=== PATIENT | male | born 1990 | race Caucasian/White ===

== ENCOUNTER 2017-08-14 10:40 | Inpatient (IN) | payer MEDICAID, OTHER ==
[2017-08-14] MEDS ORDERED: KETOROLAC TROMETHAMINE INJ/PF 30 MG/1 ML SDV IV ONE (10:56)
[2017-08-14] MEDS ORDERED: ONDANSETRON 4 MG TAB.RAPDIS SL ONE (10:56)
--- NOTE | 2017-08-14 10:57 | ER Document Report ---
ED Medical Screen (RME) - General Chief Complaint: Abdominal Pain Stated Complaint: ABDOMINAL PAIN Time Seen by Provider: 08/14/17 10:55 Mode of Arrival: Wheelchair Information source: Patient TRAVEL OUTSIDE OF THE [place] IN LAST 30 DAYS: No - HPI Patient complains to provider of: Abdominal pain Notes: 08/14/17 10:56 Patient is a 26-year-old male presenting to the emergency room complaining of epigastric abdominal pain with nausea and vomiting, no history of similar symptoms, no previous abdominal surgeries - Related Data Allergies/Adverse Reactions: No Known Allergies Allergy (Verified 04/21/14 12:16) Past Medical History Psychiatric Medical History: Reports: Hx Anxiety, Hx Bipolar Disorder, Hx Depression Past Surgical History: Reports: Hx Oral Surgery - Immunizations Hx Diphtheria, Pertussis, Tetanus Vaccination: Yes
[2017-08-14] MEDS: NORMAL SALINE 1000 ML 1,000 ML IV PRN ×2 (11:05→11:29)
[2017-08-14] MEDS ORDERED: METOCLOPRAMIDE HCL INJ/PF 10 MG/2 ML SDV IV ONE (11:08)
--- NOTE | 2017-08-14 11:54 | ER Document Report ---
ED GI/ - General Chief Complaint: Abdominal Pain Stated Complaint: ABDOMINAL PAIN Time Seen by Provider: 08/14/17 10:55 Mode of Arrival: Wheelchair Information source: Patient TRAVEL OUTSIDE OF THE [place] IN LAST 30 DAYS: No - HPI Patient complains to provider of: Abdominal pain Onset: This morning - AWAKENED BY PAIN Timing/Duration: Constant, Waxing and waning Quality of pain: Cramping Severity at maximum: Moderate Severity in ED: Moderate Context: denies: Bad food, Lifting, Recent trauma Location: Epigastric Associated symptoms: Loss of appetite, Nausea. denies: Chills, Diarrhea, Fever , Vomiting Exacerbated by: Denies Relieved by: Denies Similar symptoms previously: No Recently seen / treated by doctor: No - Related Data Allergies/Adverse Reactions: No Known Allergies Allergy (Verified 08/14/17 12:14) Home Medications: Current Home Medications Gabapentin [Neurontin 100 mg Capsule] 300 mg PO TID 08/14/17 [History] Lorazepam [Ativan 0.5 mg Tablet] 1 mg PO PRN PRN 08/14/17 [History] Methylphenidate HCl [Ritalin] 10 mg PO BID 08/14/17 [History] Past Medical History - General Information source: Patient - Social History Smoking Status: Former Smoker Cigarette use (# per day): No Chew tobacco use (# tins/day): No Frequency of alcohol use: Occasional - LAST 2 DAYS AGO Drug Abuse: None Lives with: Alone Family History: Reviewed & Not Pertinent - Past Medical History Cardiac Medical History: Reports: None Pulmonary Medical History: Reports: None EENT Medical History: Reports: None Neurological Medical History: Reports: None Endocrine Medical History: Reports: None Renal/ Medical History: Reports: None Malignancy Medical History: Reports None GI Medical History: Reports: None Musculoskeltal Medical History: Reports None Psychiatric Medical History: Reports: Hx Anxiety, Hx Bipolar Disorder, Hx Depression Past Surgical History: Reports: Hx Oral Surgery - Immunizations Hx Diphtheria, Pertussis, Tetanus Vaccination: Yes Review of Systems - Review of Systems Constitutional: No symptoms reported EENT: No symptoms reported Cardiovascular: No symptoms reported Respiratory: No symptoms reported Gastrointestinal: Abdominal pain, Nausea, Vomiting. denies: Diarrhea, Black stools Musculoskeletal: No symptoms reported Skin: No symptoms reported Neurological/Psychological: No symptoms reported Physical Exam - Vital signs Vitals: Temp Pulse Resp BP Pulse Ox 97.2 F 108 H 22 H 142/84 H 100 08/14/17 10:53 08/14/17 10:53 08/14/17 10:53 08/14/17 10:53 08/14/17 10:53 Interpretation: Hypertensive, Tachycardic, Tachypneic. No: Febrile Course - Vital Signs Vital signs: Temp Pulse Resp BP Pulse Ox 98.7 F 58 L 14 150/91 H 97 08/14/17 19:02 08/14/17 19:02 08/14/17 19:02 08/14/17 19:02 08/14/17 19:02 - Laboratory Result Diagrams: 08/14/17 12:10 08/14/17 11:20 Laboratory results interpreted by me: 08/14/17 08/14/17 08/14/17 11:20 12:10 12:38 WBC 15.1 H RBC 4.18 L Hgb 12.8 L Hct 37.0 L Seg Neutrophils % 83.0 H Lymphocytes % 9.9 L Absolute Neutrophils 12.5 H Potassium 3.1 L Carbon Dioxide 19 L Anion Gap 21 H BUN 5 L Glucose 181 H Direct Bilirubin 0.5 H Alkaline Phosphatase 137 H Lipase 2957.1 H Urine Ketones 20 H Urine Ascorbic Acid 40 H - Consults DR. MUÑOZ Time consulted: 17:55 Reason for consultation: 08/14/17 19:57 AGREES WITH ADMISSION - OUTPATIENT OBS., FLOOR BED Consulted provider: will come to ER Discharge - Discharge Clinical Impression: Acute pancreatitis Qualifiers: Pancreatitis type: unspecified pancreatitis type Acute pancreatitis complication: no infection or necrosis Qualified Code(s): K85.90 - Acute pancreatitis without necrosis or infection, unspecified Condition: Good Disposition: ADMITTED OBSERVATION Admitting Provider: Hospitalist Unit Admitted: Medical Floor
[2017-08-14 12:09] LABS: ALANINE AMINOTRANSFERASE 53 U/L (21-72); ALBUMIN 4.7 g/dL (3.5-5.0); ALKALINE PHOSPHATASE 137 U/L (38-126); ASPARTATE AMINO TRANSFERASE 57 U/L (17-59); BILIRUBIN,DIRECT 0.5 mg/dL (0.0-0.4); BLOOD UREA NITROGEN 5 mg/dL (7-20); CALCIUM 10.2 mg/dL (8.4-10.2); CHLORIDE 102 mmol/L (98-107); CREATININE RESULT 0.83 mg/dL (0.52-1.25); GLUCOSE 181 mg/dL (75-110); TOTAL PROTEIN 7.8 g/dL (6.3-8.2)
[2017-08-14 12:17] LABS: CARBON DIOXIDE 19 mmol/L (22-30); LIPASE 2957.1 U/L (23-300); SODIUM 141.5 mmol/L (137-145)
[2017-08-14 12:18] LABS: ANION GAP 21 (5-19); POTASSIUM 3.1 mmol/L (3.6-5.0)
[2017-08-14 12:35] LABS: ABSOLUTE LYMPHOCYTES (AUTO) 1.5 10^3/uL (0.5-4.7); ABSOLUTE NEUT (AUTO) 12.5 10^3/uL (1.7-8.2); BASOPHILS % (AUTO) 0.2 % (0-2); EOSINOPHILS % (AUTO) 0.1 % (0-6); HEMOGLOBIN 12.8 g/dL (13.5-17.0); HGB HCT DIFFERENCE 1.4; LYMPHOCYTES % (AUTO) 9.9 % (13-45); MEAN CORPUSCULAR HEMOGLOBIN 30.6 pg (27.0-33.4); MEAN CORPUSCULAR HGB CONC 34.6 g/dL (32.0-36.0); MEAN CORPUSCULAR VOLUME 89 fl (80-97); MONOCYTES % (AUTO) 6.8 % (3-13); RED BLOOD COUNT 4.18 10^6/uL (4.35-5.55); RED CELL DISTRIBUTION WIDTH 13.3 % (11.5-14.0); WHITE BLOOD COUNT 15.1 10^3/uL (4.0-10.5)
[2017-08-14 12:53] LABS: APPEARANCE,URINE CLEAR; BILIRUBIN,URINE NEGATIVE (NEGATIVE); GLUCOSE, URINE NEGATIVE (NEGATIVE); KETONES,URINE 20 mg/dL (NEGATIVE); LEUKOCYTE ESTERASE,URINE NEGATIVE (NEGATIVE); NITRITE,URINE NEGATIVE (NEGATIVE); PROTEIN,URINE NEGATIVE (NEGATIVE); URINE SPECIFIC GRAVITY 1.011; UROBILINOGEN,URINE NEGATIVE mg/dL (<2.0)
[2017-08-14 13:14] LABS: URINE BARBITURATES SCREEN NEGATIVE; URINE METHADONE SCREEN NEGATIVE; URINE OPIATES LOW UNCONFIRMED POSITIVE; URINE PHENCYCLIDINE SCREEN NEGATIVE
[2017-08-14] MEDS ORDERED: MORPHINE SULFATE 10 MG/ML INJ IV ONE ×2 (13:23→16:05)
--- NOTE | 2017-08-14 15:11 | RADIOLOGY REPORT (SQ) ---
EXAM DESCRIPTION: U/S ABDOMEN LIMITED W/O DOP COMPLETED DATE/TIME: 08/14/2017 3:02 pm REASON FOR STUDY: EPIGASTRIC PAIN, ELEVATED LIPASE AND ALK. PHOS. COMPARISON: CT abdomen pelvis 12/06/2013 TECHNIQUE: Dynamic and static grayscale images acquired of the abdomen and recorded on PACS. Additio nal selected color Doppler and spectral images recorded. LIMITATIONS: Midline bowel gas FINDINGS: PANCREAS: Not visualized LIVER: Increased echogenicity, difficult to penetrate with the ultrasound energy from profound fatty infiltration. LIVER VASCULATURE: Normal directional flow of the main portal vein and hepatic veins. GALLBLADDER: There is sludge in the gallbladder with tiny stones. No gallbladder wall thickening or pericholecystic fluid. ULTRASOUND-DETECTED FLAHERTY'S SIGN: Negative. INTRAHEPATIC DUCTS AND COMMON DUCT: No gross intrahepatic biliary ductal dilatation. Extrahepatic bi le ducts not well seen due to midline bowel gas INFERIOR VENA CAVA: Not well seen AORTA: No aneurysm. RIGHT KIDNEY: Normal size. Normal echogenicity. No solid or suspicious masses. No hydronephrosis. No calcifications. PERITONEAL AND RIGHT PLEURAL SPACE: No ascites or effusions. OTHER: No other significant findings. IMPRESSION: Nonvisualization of the pancreas Profound fatty liver Sludge and tiny stones in the gallbladder without gallbladder wall thickening or pericholecystic flui d. TECHNICAL DOCUMENTATION: JOB ID: [id number] [facility]- All Rights Reserved
[2017-08-14] MEDS ORDERED: ONDANSETRON HCL INJ/PF 4 MG/2 ML SDV IV ONE ×2 (16:05→18:02)
[2017-08-14] MEDS ORDERED: HYDROMORPHONE HCL INJ/PF 2 MG/ML AMPULE IV ONE (18:02)
--- NOTE | 2017-08-14 19:36 | RADIOLOGY REPORT (SQ) ---
EXAM DESCRIPTION: CT ABD/PELVIS WITH IV ORAL COMPLETED DATE/TIME: 08/14/2017 6:52 pm REASON FOR STUDY: PANCREATITIS COMPARISON: None. TECHNIQUE: CT scan of the abdomen and pelvis performed using helical scanning technique with dynamic intravenous contrast injection. No oral contrast. Images reviewed with lung, soft tissue, and bone windows. Reconstructed coronal and sagittal MPR images reviewed. Delayed images for evaluation of the urinary system also acquired. All images stored on PACS. All CT scanners at this facility use dose modulation, iterative reconstruction, and/or weight based d osing when appropriate to reduce radiation dose to as low as reasonably achievable (ALARA). [facility]: Dose Right [facility]: CareDose [facility]: Dose Right [facility]: Teradose 4D [facility]: [employer] CONTRAST TYPE AND DOSE: contrast/concentration: Isovue 370.00 mg/ml; Total Contrast Delivered: 93.0 ml; Total Saline Delivered: 71.0 ml RENAL FUNCTION: None required. The patient is less than 50 years old. RADIATION DOSE: Up-to-date CT equipment and radiation dose reduction techniques were employed. CTDIv ol: 9.3 - 12.9 mGy. DLP: 1306 mGy-cm.. LIMITATIONS: None. FINDINGS: LOWER CHEST: No significant findings. No nodules or infiltrates. LIVER: Normal size. Diffuse fatty infiltration of the liver. No masses. No dilated ducts. SPLEEN: Normal size. No focal lesions. PANCREAS: Moderate adjacent inflammation. No peripancreatic fluid collections. Pancreatic duct not d ilated. GALLBLADDER: No identified stones by CT criteria. No inflammatory changes to suggest cholecystitis. ADRENAL GLANDS: No significant masses or asymmetry. RIGHT KIDNEY AND URETER: No solid masses. No significant calcifications. No hydronephrosis or hyd roureter. LEFT KIDNEY AND URETER: No solid masses. No significant calcifications. No hydronephrosis or hydr oureter. AORTA AND VESSELS: No aneurysm. No dissection. Renal arteries, SMA, celiac without stenosis. RETROPERITONEUM: Moderate upper retroperitoneal inflammatory changes. No retroperitoneal adenopathy, hemorrhage or masses. BOWEL AND PERITONEAL CAVITY: No masses or inflammatory changes. No free fluid or peritoneal masses. APPENDIX: Normal. PELVIS: No mass. No free fluid. Normal bladder. ABDOMINAL WALL: No masses. No hernias. BONES: No significant or acute findings. OTHER: No other significant finding. IMPRESSION: Moderate inflammatory changes consistent with pancreatitis. TECHNICAL DOCUMENTATION: JOB ID: [id number] Quality ID # [id number]: Final reports with documentation of one or more dose reduction techniques (e.g., Au tomated exposure control, adjustment of the mA and/or kV according to patient size, use of iterative reconstruction technique) 2010 [employer]- All Rights Reserved
[2017-08-14] MEDS ORDERED: IPRATROPIUM/ALBUTEROL 0.5-2.5 MG/3 ML AMPUL NEB PRN (19:59)
[2017-08-14] MEDS ORDERED: ACETAMINOPHEN 325 MG TABLET PO PRN (19:59)
[2017-08-14] MEDS ORDERED: NORMAL SALINE 1000 ML 1,000 ML IV SCH (20:00)
[2017-08-14] MEDS ORDERED: THIAMINE HCL 100 MG, FOLIC ACID 1 MG in NORMAL SALINE 250 ML IV ONE (20:05)
[2017-08-14] MEDS: KETOROLAC TROMETHAMINE INJ/PF 30 MG/1 ML SDV IV PRN (21:18)
[2017-08-14] MEDS ORDERED: THIAMINE HCL INJ 200 MG/2 ML VIAL IV PRN (21:26)
[2017-08-14] MEDS ORDERED: FOLIC ACID INJ 5 MG/1 ML 10 ML VIAL IV PRN (21:27)
[2017-08-14] MEDS ORDERED: THIAMINE HCL INJ 200 MG/2 ML VIAL ONE (21:28)
[2017-08-14] MEDS ORDERED: FOLIC ACID INJ 5 MG/1 ML 10 ML VIAL ONE (21:29)
[2017-08-14] MEDS: NORMAL SALINE 1000 ML 1,000 ML IV SCH (23:09)
[2017-08-15] MEDS: HEPARIN SOD (PORCINE) 5,000 UNIT/ML 1 ML SYRINGE SUBCUT SCH ×4 (00:42→21:09)
[2017-08-15] MEDS: NORMAL SALINE 1000 ML 1,000 ML IV SCH ×2 (03:11→07:12)
[2017-08-15] MEDS: KETOROLAC TROMETHAMINE INJ/PF 30 MG/1 ML SDV IV PRN (03:11)
[2017-08-15] MEDS ORDERED: ONDANSETRON HCL INJ/PF 4 MG/2 ML SDV IV PRN ×2 (03:31→08:07)
--- NOTE | 2017-08-15 04:21 | PDOC H&P ---
History of Present Illness Admission Date/PCP: 08/14/17 19:59 Patient complains of: Epigastric pain History of Present Illness: VANNESSA PATEL is a 26 year old male with a past medical history of polysubstance abuse and tobacco dependence who has been in his usual state of health until approximately 48 hours prior to presentation. He has developed epigastric pain nausea without vomiting shortly after alcohol intake, pain exacerbated by p.o. intake. Patient denies new medications or previous episode in the emergency room is found to have leukocytosis and has biochemical and biophysical evidence acute pancreatitis. He is started on IV fluids and hospitalist for admission. Past Medical History Cardiac Medical History: Reports: None Pulmonary Medical History: Reports: None EENT Medical History: Reports: None Neurological Medical History: Reports: None Endocrine Medical History: Reports: None Renal/ Medical History: Reports: None Malignancy Medical History: Reports: None GI Medical History: Reports: None Musculoskeltal Medical History: Reports: None Psychiatric Medical History: Reports: Bipolar Disorder, Depression, Substance Abuse, Tobacco Dependency Social History Information Source: Patient, [facility] Lives with: Alone Smoking Status: Current Every Day Smoker Frequency of Alcohol Use: Occasional Hx Recreational Drug Use: Yes Hx Prescription Drug Abuse: Yes - Advance Directive Resuscitation Status: Full Code Family History Family History: DM, Hypertension Parental Family History Reviewed: Yes Children Family History Reviewed: Yes Sibling(s) Family History Reviewed.: Yes Medication/Allergy Home Medications: Gabapentin [Neurontin 100 mg Capsule] 300 mg PO TID 08/14/17 Lorazepam [Ativan 0.5 mg Tablet] 1 mg PO PRN PRN 08/14/17 Methylphenidate HCl [Ritalin] 10 mg PO BID 08/14/17 Allergies/Adverse Reactions: No Known Allergies Allergy (Verified 08/14/17 12:14) Review of Systems Constitutional: ABSENT: chills, fever(s), headache(s), weight gain, weight loss Eyes: ABSENT: visual disturbances Ears: ABSENT: hearing changes Cardiovascular: ABSENT: chest pain, dyspnea on exertion, edema, orthropnea, palpitations Respiratory: ABSENT: cough, hemoptysis Gastrointestinal: ABSENT: abdominal pain, constipation, diarrhea, hematemesis, hematochezia, nausea, vomiting Genitourinary: ABSENT: dysuria, hematuria Musculoskeletal: ABSENT: joint swelling Integumentary: ABSENT: rash, wounds Neurological: ABSENT: abnormal gait, abnormal speech, confusion, dizziness, focal weakness, syncope Psychiatric: ABSENT: anxiety, depression, homidical ideation, suicidal ideation Endocrine: ABSENT: cold intolerance, heat intolerance, polydipsia, polyuria Hematologic/Lymphatic: ABSENT: easy bleeding, easy bruising Physical Exam Vital Signs: Temp Pulse Resp BP Pulse Ox 97.9 F 102 H 18 156/97 H 99 08/14/17 23:32 08/14/17 23:32 08/14/17 23:32 08/14/17 23:32 08/14/17 23:32 Intake & Output 08/13/17 08/14/17 08/15/17 11:59 11:59 11:59 Intake Total 50 Balance 50 General appearance: PRESENT: cooperative, mild distress, well-developed, well- nourished Head exam: PRESENT: atraumatic, normocephalic Eye exam: PRESENT: conjunctiva pink, EOMI, PERRLA. ABSENT: scleral icterus Ear exam: PRESENT: normal external ear exam Mouth exam: PRESENT: moist, tongue midline Neck exam: ABSENT: carotid bruit, JVD, lymphadenopathy, thyromegaly Respiratory exam: PRESENT: clear to auscultation nahid. ABSENT: rales, rhonchi, wheezes Cardiovascular exam: PRESENT: RRR. ABSENT: diastolic murmur, rubs, systolic murmur Pulses: PRESENT: normal dorsalis pedis pul Vascular exam: PRESENT: normal capillary refill GI/Abdominal exam: PRESENT: hyperactive bowel sounds, soft, tenderness. ABSENT : distended, guarding, mass, organolmegaly, rebound Rectal exam: PRESENT: deferred Extremities exam: PRESENT: full ROM. ABSENT: calf tenderness, clubbing, pedal edema Neurological exam: PRESENT: alert, awake, oriented to person, oriented to place , oriented to time, oriented to situation, CN II-XII grossly intact. ABSENT: motor sensory deficit Psychiatric exam: PRESENT: appropriate affect, normal mood. ABSENT: homicidal ideation, suicidal ideation Skin exam: PRESENT: dry, intact, warm. ABSENT: cyanosis, rash Results Impressions: Abdomen Ultrasound 08/14/17 13:22 IMPRESSION: Nonvisualization of the pancreas Profound fatty liver Sludge and tiny stones in the gallbladder without gallbladder wall thickening or pericholecystic fluid. Abdomen/Pelvis CT 08/14/17 15:29 IMPRESSION: Moderate inflammatory changes consistent with pancreatitis. Assessment & Plan - Diagnosis (1) Acute pancreatitis Qualifiers: Pancreatitis type: unspecified pancreatitis type Acute pancreatitis complication: no infection or necrosis Qualified Code(s): K85.90 - Acute pancreatitis without necrosis or infection, unspecified Is this a current diagnosis for this admission?: Yes Plan: Medical floor admission, bowel rest, IV fluids and symptomatic management, limiting narcotics given history of substance abuse and questionable alcohol abuse. (2) Bipolar II disorder, severe, depressed, with anxious distress, in partial remission Is this a current diagnosis for this admission?: Yes Plan: Avoid habit-forming regiment consider Haldol or SSRI. (3) Chronic pain disorder Is this a current diagnosis for this admission?: Yes Plan: Avoid narcotics secondary to history of dependent (4) Hypokalemia Is this a current diagnosis for this admission?: Yes Plan: Secondary to pancreatitis, replete and reevaluate chemistry - Time Time Spent: 30 to 50 Minutes - Inpatient Certification Medical Necessity: Need Close Monitoring Due to Risk of Patient Decompensation
[2017-08-15 05:13] LABS: ABSOLUTE LYMPHOCYTES (AUTO) 1.1 10^3/uL (0.5-4.7); ABSOLUTE MONOCYTES (AUTO) 1.3 10^3/uL (0.1-1.4); ABSOLUTE NEUT (AUTO) 16.1 10^3/uL (1.7-8.2); BASOPHILS % (AUTO) 0.1 % (0-2); HEMATOCRIT 37.3 % (37.9-51.0); HEMOGLOBIN 13.1 g/dL (13.5-17.0); LYMPHOCYTES % (AUTO) 5.9 % (13-45); MEAN CORPUSCULAR HEMOGLOBIN 30.7 pg (27.0-33.4); MEAN CORPUSCULAR HGB CONC 35.1 g/dL (32.0-36.0); MEAN CORPUSCULAR VOLUME 87 fl (80-97); MONOCYTES % (AUTO) 6.9 % (3-13); RED BLOOD COUNT 4.27 10^6/uL (4.35-5.55); RED CELL DISTRIBUTION WIDTH 13.3 % (11.5-14.0); SEGMENTED NEUTROPHILS % (AUTO) 87.1 % (42-78); WHITE BLOOD COUNT 18.5 10^3/uL (4.0-10.5)
[2017-08-15 05:32] LABS: ALANINE AMINOTRANSFERASE 41 U/L (21-72); ALBUMIN 3.6 g/dL (3.5-5.0); ALKALINE PHOSPHATASE 103 U/L (38-126); ANION GAP 14 (5-19); ASPARTATE AMINO TRANSFERASE 26 U/L (17-59); BILIRUBIN,DIRECT 0.4 mg/dL (0.0-0.4); BILIRUBIN,TOTAL 0.7 mg/dL (0.2-1.3); BLOOD UREA NITROGEN 9 mg/dL (7-20); CALCIUM 9.1 mg/dL (8.4-10.2); CARBON DIOXIDE 22 mmol/L (22-30); CHLORIDE 103 mmol/L (98-107); CREATININE RESULT 0.69 mg/dL (0.52-1.25); Direct HDL 25 mg/dL (>40); GLUCOSE 107 mg/dL (75-110); SODIUM 139.4 mmol/L (137-145); TOTAL PROTEIN 6.1 g/dL (6.3-8.2); TRIGLYCERIDES 79 mg/dL (<150)
[2017-08-15 05:43] LABS: DIRECT LDL 72 mg/dL (<100)
[2017-08-15 05:45] LABS: POTASSIUM 4.3 mmol/L (3.6-5.0)
[2017-08-15] MEDS ORDERED: MORPHINE SULFATE 10 MG/ML INJ IV PRN (08:08)
--- NOTE | 2017-08-15 08:29 | Physician Advisory Note ---
Physician Advisor ProgressNote .: Pursuant to the plan for [facility], I have reviewed the medical record for this patient. Physician Advisor Statement: Status: Reasonably Obs to start. However, he required 3 doses of IV narcotic for pain control in ED, & has just been Rx'd prn morphine IV. If he needs this frequently today (say, 3+ times) to control pain, he could be considered for Inpt status by this PM. As of 08/16, if he still needs to be NPO w/IVF, needing frequent prn IV meds ( morphine, Zofran, ...), etc., then appropriate for Inpatient status. CK
[2017-08-15] MEDS ORDERED: KETOROLAC TROMETHAMINE INJ/PF 30 MG/1 ML SDV IV ONE (10:00)
[2017-08-15] MEDS: MORPHINE SULFATE 10 MG/ML INJ IV PRN ×7 (10:55→23:42)
[2017-08-15] MEDS ORDERED: ACETAMINOPHEN 325 MG TABLET PO PRN (13:00)
[2017-08-15] MEDS ORDERED: LORAZEPAM 0.5 MG TABLET PO PRN (14:19)
[2017-08-15] MEDS: ONDANSETRON HCL INJ/PF 4 MG/2 ML SDV IV PRN ×2 (14:30→23:45)
[2017-08-15] MEDS: NORMAL SALINE 1000 ML 1,000 ML IV PRN ×2 (15:04→20:19)
--- NOTE | 2017-08-15 16:29 | PDOC PROGRESS REPORT ---
Subjective Progress Note for:: 08/15/17 Subjective:: The patient is a 26-year-old male with a past medical history significant for alcohol abuse and tobacco dependence. He presented to the emergency room with epigastric pain, nausea without vomiting and pain that was exacerbated by p.o. intake. He had a CT scan of the abdomen and pelvis which revealed acute pancreatitis. Patient was admitted to the hospital. He has been made n.p.o. and currently receiving aggressive IV fluids. Today when I saw the patient he states he still having a significant amount of pain. His pain is poorly controlled on the current regimen. He states he has had nausea but no vomiting. He has had no fever chills overnight. No chest pain or heart palpitations. He states the abdominal pain radiates into his back. He states his abdomen feels distended. He states that he is burping frequently and is passing gas but he has not yet had a bowel movement. He is having urinary frequency due to the IV fluids. No dysuria or hematuria noted. Physical Exam Vital Signs: Temp Pulse Resp BP Pulse Ox 98.8 F 91 16 143/92 H 99 08/15/17 16:00 08/15/17 16:00 08/15/17 16:00 08/15/17 16:00 08/15/17 16:00 Intake & Output 08/14/17 08/15/17 08/16/17 06:59 06:59 06:59 Intake Total 1984 Balance 1984 Weight 89.3 kg 89.3 kg General appearance: PRESENT: disheveled, mild distress, thin Head exam: PRESENT: atraumatic, normocephalic Mouth exam: PRESENT: moist, tongue midline Respiratory exam: PRESENT: clear to auscultation naihd, other - Poor effort as he states it hurts to take a deep breath. ABSENT: rales, rhonchi, wheezes Cardiovascular exam: PRESENT: tachycardia. ABSENT: diastolic murmur, rubs, systolic murmur Pulses: PRESENT: normal dorsalis pedis pul GI/Abdominal exam: PRESENT: distended, firm, guarding, hyperactive bowel sounds , tenderness. ABSENT: rebound, rigid Rectal exam: PRESENT: deferred Extremities exam: PRESENT: full ROM. ABSENT: calf tenderness, clubbing, pedal edema Neurological exam: PRESENT: alert, awake, oriented to person, oriented to place , oriented to time, oriented to situation, CN II-XII grossly intact. ABSENT: motor sensory deficit Psychiatric exam: PRESENT: agitated, anxious Skin exam: PRESENT: dry, intact, warm. ABSENT: cyanosis, rash Results Laboratory Results: 08/15/17 03:54 08/15/17 03:54 08/15/17 08/15/17 03:54 03:54 WBC 18.5 H RBC 4.27 L Hgb 13.1 L Hct 37.3 L MCV 87 MCH 30.7 MCHC 35.1 RDW 13.3 Plt Count 259 Seg Neutrophils % 87.1 H Lymphocytes % 5.9 L Monocytes % 6.9 Eosinophils % 0.0 Basophils % 0.1 Absolute Neutrophils 16.1 H Absolute Lymphocytes 1.1 Absolute Monocytes 1.3 Absolute Eosinophils 0.0 Absolute Basophils 0.0 Sodium 139.4 Potassium 4.3 D Chloride 103 Carbon Dioxide 22 Anion Gap 14 BUN 9 Creatinine 0.69 Est GFR ( Amer) > 60 Est GFR (Non-Af Amer) > 60 Glucose 107 Calcium 9.1 Total Bilirubin 0.7 AST 26 ALT 41 Alkaline Phosphatase 103 Total Protein 6.1 L Albumin 3.6 Triglycerides 79 Cholesterol 108.20 LDL Cholesterol Direct 72 VLDL Cholesterol 16.0 HDL Cholesterol 25 L Impressions: Abdomen Ultrasound 08/14/17 13:22 IMPRESSION: Nonvisualization of the pancreas Profound fatty liver Sludge and tiny stones in the gallbladder without gallbladder wall thickening or pericholecystic fluid. Abdomen/Pelvis CT 08/14/17 15:29 IMPRESSION: Moderate inflammatory changes consistent with pancreatitis. Assessment & Plan - Diagnosis (1) Acute pancreatitis Qualifiers: Pancreatitis type: unspecified pancreatitis type Acute pancreatitis complication: no infection or necrosis Qualified Code(s): K85.90 - Acute pancreatitis without necrosis or infection, unspecified Is this a current diagnosis for this admission?: Yes Plan: He will continue IV fluids at 175 cc an hour. He will remain n.p.o. He will have IV morphine available as needed. (2) Bipolar II disorder, severe, depressed, with anxious distress, in partial remission Is this a current diagnosis for this admission?: Yes Plan: We will place him back on his home regimen. (3) Tobacco abuse Plan: I will make sure he has a nicotine patch. (4) Hypokalemia Is this a current diagnosis for this admission?: Yes Plan: This will be repleted. He will have a chemistry panel drawn in the morning. (5) Anemia Plan: This is a normocytic anemia. There also likely is an element of hemodilution. I will obtain an anemia panel for further evaluation. - Time Time Spent with patient: 25-34 minutes - Inpatient Certification Medical Necessity: Need For IV Fluids, Other - The patient's status will be changed from observation to admission. At this point the patient requiring frequent parenteral narcotics to control his pain. He is requiring aggressive IV fluid hydration. He is n.p.o. and unable to eat at this point. Further hospitalization remains necessary.
[2017-08-15] MEDS ORDERED: INFLUENZA ADLT QUAD (36MOS+) 2017-18 VAC 0.5 ML SYR IM PRN (17:10)
[2017-08-15] MEDS: GABAPENTIN 100 MG CAPSULE PO SCH (21:09)
[2017-08-16] MEDS: MORPHINE SULFATE 10 MG/ML INJ IV PRN ×10 (01:25→21:44)
[2017-08-16] MEDS: NORMAL SALINE 1000 ML 1,000 ML IV PRN ×4 (01:26→23:03)
[2017-08-16] MEDS: ONDANSETRON HCL INJ/PF 4 MG/2 ML SDV IV PRN ×4 (03:54→19:35)
[2017-08-16] MEDS: HEPARIN SOD (PORCINE) 5,000 UNIT/ML 1 ML SYRINGE SUBCUT SCH ×3 (05:31→21:44)
[2017-08-16] MEDS: GABAPENTIN 100 MG CAPSULE PO SCH ×3 (05:31→21:44)
[2017-08-16 07:52] LABS: HEMATOCRIT 39.2 % (37.9-51.0); HEMOGLOBIN 13.8 g/dL (13.5-17.0); HGB HCT DIFFERENCE 2.2; MEAN CORPUSCULAR HEMOGLOBIN 30.9 pg (27.0-33.4); MEAN CORPUSCULAR HGB CONC 35.2 g/dL (32.0-36.0); MEAN CORPUSCULAR VOLUME 88 fl (80-97); RED BLOOD COUNT 4.47 10^6/uL (4.35-5.55); RED CELL DISTRIBUTION WIDTH 13.5 % (11.5-14.0); WHITE BLOOD COUNT 21.4 10^3/uL (4.0-10.5)
[2017-08-16 08:10] LABS: ANION GAP 16 (5-19); BLOOD UREA NITROGEN 8 mg/dL (7-20); CALCIUM 9.2 mg/dL (8.4-10.2); CARBON DIOXIDE 23 mmol/L (22-30); CHLORIDE 99 mmol/L (98-107); CREATININE RESULT 0.58 mg/dL (0.52-1.25); GLUCOSE 78 mg/dL (75-110); MAGNESIUM 1.7 mg/dL (1.6-2.3); SODIUM 138.3 mmol/L (137-145)
[2017-08-16 08:14] LABS: BASOPHILS % (MANUAL) 0 % (0-2); EOSINOPHILS % (MANUAL) 1 % (0-6); LYMPHOCYTES % (MANUAL) 0 % (13-45); RBC MORPHOLOGY COMMENT NORMO-CYTIC/CHROMIC; TOTAL CELLS COUNTED 100
[2017-08-16 09:16] LABS: FOLATE 2.28 ng/mL (>2.76)
[2017-08-16] MEDS: LAMOTRIGINE 100 MG TABLET PO SCH (09:23)
--- NOTE | 2017-08-16 16:34 | PDOC PROGRESS REPORT ---
Subjective Progress Note for:: 08/16/17 Subjective:: This is a 26-year-old white male with past medical history significant for alcohol, tobacco, and drug abuse. Patient was admitted for acute pancreatitis found to have a significantly high lipase level almost [address] scan of the abdomen pelvis. Currently he continues to be n.p.o. and receiving IV fluids. Today patient is asking for increase of his IV morphine currently is getting 4 mg every 2 hours. States he is controlled well wears off in about an hour and a half. Patient has a documented past medical history of drug overdose , narcotic prescription abuse. He was found to have a positive opioid tox screen but he denies any narcotic medication except for gabapentin. 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 ABSENT: scleral icterus Ear exam: PRESENT: normal external ear exam Mouth exam: PRESENT: moist, tongue midline Neck exam: ABSENT: carotid bruit, JVD, lymphadenopathy, thyromegaly Respiratory exam: PRESENT: clear to auscultation nahid. ABSENT: rales, rhonchi, wheezes Cardiovascular exam: PRESENT: RRR. ABSENT: diastolic murmur, rubs, systolic murmur Pulses: PRESENT: normal dorsalis pedis pul Vascular exam: PRESENT: normal capillary refill GI/Abdominal exam: PRESENT: rebound, soft, tenderness Rectal exam: PRESENT: deferred Extremities exam: PRESENT: full ROM. ABSENT: calf tenderness, clubbing, pedal edema Neurological exam: PRESENT: alert, awake, oriented to person, oriented to place , oriented to time, oriented to situation, CN II-XII grossly intact. ABSENT: motor sensory deficit Psychiatric exam: PRESENT: appropriate affect, normal mood. ABSENT: homicidal ideation, suicidal ideation Skin exam: PRESENT: dry, intact, warm. ABSENT: cyanosis, rash Results Laboratory Results: 08/16/17 06:35 08/16/17 06:35 08/16/17 08/16/17 06:35 06:35 WBC 21.4 H RBC 4.47 Hgb 13.8 Hct 39.2 MCV 88 MCH 30.9 MCHC 35.2 RDW 13.5 Plt Count 252 Seg Neutrophils % Not Reportable Lymphocytes % Not Reportable Monocytes % Not Reportable Eosinophils % Not Reportable Basophils % Not Reportable Absolute Neutrophils Not Reportable Absolute Lymphocytes Not Reportable Absolute Monocytes Not Reportable Absolute Eosinophils Not Reportable Absolute Basophils Not Reportable Retic Count (auto) 1.92 Absolute Retic 0.086 Sodium 138.3 Potassium 4.0 Chloride 99 Carbon Dioxide 23 Anion Gap 16 BUN 8 Creatinine 0.58 Est GFR ( Amer) > 60 Est GFR (Non-Af Amer) > 60 Glucose 78 Calcium 9.2 Magnesium 1.7 Iron 29.3 L TIBC 256 % Saturation 11 Ferritin 184.00 Vitamin B12 229.0 L Folate 2.28 L Impressions: Abdomen Ultrasound 08/14/17 13:22 IMPRESSION: Nonvisualization of the pancreas Profound fatty liver Sludge and tiny stones in the gallbladder without gallbladder wall thickening or pericholecystic fluid. Abdomen/Pelvis CT 08/14/17 15:29 IMPRESSION: Moderate inflammatory changes consistent with pancreatitis. Assessment & Plan - Diagnosis (1) Acute pancreatitis Qualifiers: Pancreatitis type: unspecified pancreatitis type Acute pancreatitis complication: no infection or necrosis Qualified Code(s): K85.90 - Acute pancreatitis without necrosis or infection, unspecified Is this a current diagnosis for this admission?: Yes Plan: Continue n.p.o. Continue IV fluids. No change in his IV morphine at this time but he was educated on the need to decrease it tomorrow. Will recheck labs in the a.m. and repeat his lipase if it has trended down significantly will consider slowly advancing his diet with hopes to send him home soon. (2) Tobacco abuse Is this a current diagnosis for this admission?: Yes Plan: Encourage smoking cessation (3) Bipolar II disorder, severe, depressed, with anxious distress, in partial remission Is this a current diagnosis for this admission?: Yes Plan: Continue his home medications (4) Chronic pain disorder Is this a current diagnosis for this admission?: Yes Plan: No change in IV pain medication at this time he is getting a fairly large amount and seems to be very well controlled. Will convert him over to oral pain medications once his lipase returns to normal. - Time Time Spent with patient: 15-24 minutes Smoking Cessation Education: 3 to 10 minutes Medications reviewed and adjusted accordingly: Yes Anticipated discharge: Home Within: within 48 hours
[2017-08-17] MEDS: ONDANSETRON HCL INJ/PF 4 MG/2 ML SDV IV PRN ×3 (00:17→13:52)
[2017-08-17] MEDS: MORPHINE SULFATE 10 MG/ML INJ IV PRN ×10 (00:17→21:53)
[2017-08-17] MEDS: ENALAPRILAT DIHYDRATE INJ/PF 1.25 MG/1 ML SDV IV PRN (04:12)
[2017-08-17 04:21] LABS: ALANINE AMINOTRANSFERASE 32 U/L (21-72); ALBUMIN 3.3 g/dL (3.5-5.0); ALKALINE PHOSPHATASE 84 U/L (38-126); ANION GAP 14 (5-19); ASPARTATE AMINO TRANSFERASE 17 U/L (17-59); BILIRUBIN,DIRECT 0.5 mg/dL (0.0-0.4); BILIRUBIN,TOTAL 0.7 mg/dL (0.2-1.3); BLOOD UREA NITROGEN 9 mg/dL (7-20); CALCIUM 8.7 mg/dL (8.4-10.2); CARBON DIOXIDE 23 mmol/L (22-30); CHLORIDE 101 mmol/L (98-107); CREATININE RESULT 0.55 mg/dL (0.52-1.25); GLUCOSE 91 mg/dL (75-110); HEMATOCRIT 38.6 % (37.9-51.0); HEMOGLOBIN 13.5 g/dL (13.5-17.0); HGB HCT DIFFERENCE 1.9; LIPASE 875.4 U/L (23-300); MEAN CORPUSCULAR HEMOGLOBIN 30.6 pg (27.0-33.4); MEAN CORPUSCULAR HGB CONC 34.9 g/dL (32.0-36.0); MEAN CORPUSCULAR VOLUME 88 fl (80-97); POTASSIUM 4.1 mmol/L (3.6-5.0); RED CELL DISTRIBUTION WIDTH 13.6 % (11.5-14.0); SODIUM 138.2 mmol/L (137-145); WHITE BLOOD COUNT 20.6 10^3/uL (4.0-10.5)
[2017-08-17 05:02] LABS: BAND NEUTROPHILS % (MANUAL) 1 % (3-5); BASOPHILS % (MANUAL) 0 % (0-2); EOSINOPHILS % (MANUAL) 0 % (0-6); LYMPHOCYTES % (MANUAL) 4 % (13-45); TOTAL CELLS COUNTED 100
[2017-08-17 05:03] LABS: OVALOCYTES SLIGHT; POIKILOCYTOSIS SLIGHT; POLYCHROMASIA SLIGHT; TOXIC GRANULATION 1+
[2017-08-17] MEDS: HEPARIN SOD (PORCINE) 5,000 UNIT/ML 1 ML SYRINGE SUBCUT SCH ×3 (05:09→21:53)
[2017-08-17] MEDS: NORMAL SALINE 1000 ML 1,000 ML IV PRN (05:09)
[2017-08-17] MEDS: GABAPENTIN 100 MG CAPSULE PO SCH ×3 (07:07→21:53)
[2017-08-17] MEDS: LISINOPRIL 10 MG TABLET PO SCH (09:37)
[2017-08-17] MEDS: LAMOTRIGINE 100 MG TABLET PO SCH (09:38)
--- NOTE | 2017-08-17 17:35 | PDOC PROGRESS REPORT ---
Subjective Progress Note for:: 08/17/17 Subjective:: This is a 26-year-old white male with past medical history significant for alcohol, tobacco, and drug abuse. Patient was admitted for acute pancreatitis found to have a significantly high lipase level almost [address] scan of the abdomen pelvis. Currently he continues to be n.p.o. and receiving IV fluids. Today patient is asking for increase of his IV morphine currently is getting 4 mg every 2 hours. States he is controlled well wears off in about an hour and a half. Patient has a documented past medical history of drug overdose , narcotic prescription abuse. He was found to have a positive opioid toxicology screen but he denies any narcotic medication except for gabapentin. States he is currently unemployed and a [id number] dad Patient's pain has improved today patient's lipase improved from 3000 to 875 I will start him on clear liquid diet. Patient tolerates some redness in her groin area and low back pain. Requests that 1 of the aids coming in to give him back massage periodically Physical Exam Vital Signs: Temp Pulse Resp BP Pulse Ox 98.7 F 105 H 17 156/97 H 95 08/17/17 15:23 08/17/17 15:23 08/17/17 15:23 08/17/17 15:23 08/17/17 15:23 Intake & Output 08/16/17 08/17/17 08/18/17 06:59 06:59 06:59 Intake Total 1567 3173 240 Output Total 1500 1740 900 Balance 67 1433 -660 Weight 89.3 kg 91.8 kg Results Laboratory Results: 08/17/17 03:44 08/17/17 03:44 08/16/17 08/17/17 08/17/17 06:35 03:44 03:44 WBC 20.6 H RBC 4.40 Hgb 13.5 Hct 38.6 MCV 88 MCH 30.6 MCHC 34.9 RDW 13.6 Plt Count 201 Seg Neutrophils % Not Reportable Lymphocytes % Not Reportable Monocytes % Not Reportable Eosinophils % Not Reportable Basophils % Not Reportable Absolute Neutrophils Not Reportable Absolute Lymphocytes Not Reportable Absolute Monocytes Not Reportable Absolute Eosinophils Not Reportable Absolute Basophils Not Reportable Sodium 138.2 Potassium 4.1 Chloride 101 Carbon Dioxide 23 Anion Gap 14 BUN 9 Creatinine 0.55 Est GFR ( Amer) > 60 Est GFR (Non-Af Amer) > 60 Glucose 91 Calcium 8.7 Transferrin 175 L Total Bilirubin 0.7 AST 17 ALT 32 Alkaline Phosphatase 84 Total Protein 6.0 L Albumin 3.3 L Lipase 875.4 H Impressions: Abdomen Ultrasound 08/14/17 13:22 IMPRESSION: Nonvisualization of the pancreas Profound fatty liver Sludge and tiny stones in the gallbladder without gallbladder wall thickening or pericholecystic fluid. Abdomen/Pelvis CT 08/14/17 15:29 IMPRESSION: Moderate inflammatory changes consistent with pancreatitis. Assessment & Plan - Diagnosis (1) Acute pancreatitis Qualifiers: Pancreatitis type: unspecified pancreatitis type Acute pancreatitis complication: no infection or necrosis Qualified Code(s): K85.90 - Acute pancreatitis without necrosis or infection, unspecified Is this a current diagnosis for this admission?: Yes Plan: Continue n.p.o. Continue IV fluids. No change in his IV morphine at this time but he was educated on the need to decrease it tomorrow. Will recheck labs in the a.m. and repeat his lipase if it has trended down significantly will consider slowly advancing his diet with hopes to send him home soon. (2) Tobacco abuse Is this a current diagnosis for this admission?: Yes Plan: Encourage smoking cessation (3) Bipolar II disorder, severe, depressed, with anxious distress, in partial remission Is this a current diagnosis for this admission?: Yes Plan: Continue his home medications (4) Chronic pain disorder Is this a current diagnosis for this admission?: Yes Plan: No change in IV pain medication at this time he is getting a fairly large amount and seems to be very well controlled. Will convert him over to oral pain medications once his lipase returns to normal. - Time Time Spent with patient: 15-24 minutes Medications reviewed and adjusted accordingly: Yes Anticipated discharge: Home Within: within 24 hours
[2017-08-17] MEDS: NYSTATIN TOPICAL POWDER 15 GM TP SCH (18:00)
[2017-08-18] MEDS: MORPHINE SULFATE 10 MG/ML INJ IV PRN ×5 (00:17→10:50)
[2017-08-18] MEDS: NORMAL SALINE 1000 ML 1,000 ML IV PRN ×2 (00:17→06:02)
[2017-08-18] MEDS: ONDANSETRON HCL INJ/PF 4 MG/2 ML SDV IV PRN ×2 (00:17→23:53)
[2017-08-18] MEDS: HEPARIN SOD (PORCINE) 5,000 UNIT/ML 1 ML SYRINGE SUBCUT SCH ×3 (06:02→21:18)
[2017-08-18] MEDS: GABAPENTIN 100 MG CAPSULE PO SCH ×3 (06:04→21:18)
[2017-08-18] MEDS ORDERED: INFLUENZA ADLT QUAD (36MOS+) 2017-18 VAC 0.5 ML SYR IM PRN (09:30)
[2017-08-18] MEDS: NYSTATIN TOPICAL POWDER 15 GM TP SCH ×2 (10:49→17:18)
[2017-08-18] MEDS: LISINOPRIL 10 MG TABLET PO SCH (10:50)
[2017-08-18] MEDS: LAMOTRIGINE 100 MG TABLET PO SCH (10:51)
[2017-08-18] MEDS: HYDROCODONE/ACETAMINOPHEN 5-325 MG TABLET PO PRN ×3 (13:05→21:18)
[2017-08-18] MEDS ORDERED: FUROSEMIDE INJ/PF 20 MG/2 ML SDV IV ONE (13:19)
--- NOTE | 2017-08-18 18:04 | PDOC PROGRESS REPORT ---
Subjective Progress Note for:: 08/18/17 Subjective:: This is a 26-year-old white male with past medical history significant for alcohol, tobacco, and drug abuse. Patient was admitted for acute pancreatitis found to have a significantly high lipase level almost [address] scan of the abdomen pelvis. Currently he continues to be n.p.o. and receiving IV fluids. Today patient is asking for increase of his IV morphine currently is getting 4 mg every 2 hours. States he is controlled well wears off in about an hour and a half. Patient has a documented past medical history of drug overdose , narcotic prescription abuse. He was found to have a positive opioid toxicology screen but he denies any narcotic medication except for gabapentin. States he is currently unemployed and a [id number] dad Patient's pain has improved today patient's lipase improved from 3000 to 875 I will start him on clear liquid diet. Patient tolerates some redness in her groin area and low back pain. Requests that 1 of the aids coming in to give him back massage periodically Having some hypertension today 160s over 100. tolerating clear liquids so I have d/c IVF and gave him some IV Lasix since he had gained over 5 kg in 4 days try to diurese him some and suspect his blood pressure will improve. Physical Exam Vital Signs: Temp Pulse Resp BP Pulse Ox 98.7 F 104 H 17 154/96 H 97 08/18/17 15:37 08/18/17 15:37 08/18/17 15:37 08/18/17 15:37 08/18/17 15:37 Intake & Output 08/17/17 08/18/17 08/19/17 06:59 06:59 06:59 Intake Total 3173 4166 1456 Output Total 1740 5200 2100 Balance 4863 -4724 644 Weight 91.8 kg 93 kg Results Laboratory Results: 08/17/17 03:44 08/17/17 03:44 Impressions: Abdomen Ultrasound 08/14/17 13:22 IMPRESSION: Nonvisualization of the pancreas Profound fatty liver Sludge and tiny stones in the gallbladder without gallbladder wall thickening or pericholecystic fluid. Abdomen/Pelvis CT 08/14/17 15:29 IMPRESSION: Moderate inflammatory changes consistent with pancreatitis. Assessment & Plan - Diagnosis (1) Acute pancreatitis Qualifiers: Pancreatitis type: unspecified pancreatitis type Acute pancreatitis complication: no infection or necrosis Qualified Code(s): K85.90 - Acute pancreatitis without necrosis or infection, unspecified Is this a current diagnosis for this admission?: Yes Plan: Continue n.p.o. Continue IV fluids. No change in his IV morphine at this time but he was educated on the need to decrease it tomorrow. Will recheck labs in the a.m. and repeat his lipase if it has trended down significantly will consider slowly advancing his diet with hopes to send him home soon. He is tolerating clear liquid diet well. Will advance to regular diet. DC'd IV pain medications and I put him on hydrocodone 5 mg every 4 hours as needed for pain. Plan to discharge him home tomorrow (2) Tobacco abuse Is this a current diagnosis for this admission?: Yes Plan: Encourage smoking cessation (3) Bipolar II disorder, severe, depressed, with anxious distress, in partial remission Plan: Continue his home medications (4) Chronic pain disorder Plan: No change in IV pain medication at this time he is getting a fairly large amount and seems to be very well controlled. Will convert him over to oral pain medications once his lipase returns to normal.
[2017-08-18] MEDS: ENALAPRILAT DIHYDRATE INJ/PF 1.25 MG/1 ML SDV IV PRN (23:53)
[2017-08-19] MEDS: HYDROCODONE/ACETAMINOPHEN 5-325 MG TABLET PO PRN ×3 (01:30→09:44)
[2017-08-19] MEDS: GABAPENTIN 100 MG CAPSULE PO SCH (05:53)
[2017-08-19] MEDS: HEPARIN SOD (PORCINE) 5,000 UNIT/ML 1 ML SYRINGE SUBCUT SCH (05:53)
[2017-08-19] MEDS: ONDANSETRON HCL INJ/PF 4 MG/2 ML SDV IV PRN (05:53)
[2017-08-19] MEDS: LISINOPRIL 10 MG TABLET PO SCH (09:45)
[2017-08-19] MEDS: NYSTATIN TOPICAL POWDER 15 GM TP SCH (09:45)
[2017-08-19] MEDS: LAMOTRIGINE 100 MG TABLET PO SCH (10:08)
[2017-08-19 11:51] VITALS: BP 142/96
--- NOTE | 2017-09-18 07:42 | PDOC DISCHARGE SUMMARY ---
General - Admit/Disc Date/PCP Admission Date/Primary Care Provider: 08/15/17 16:19 Discharge Date: 08/19/17 - Discharge Diagnosis (1) Acute pancreatitis Is this a current diagnosis for this admission?: Yes Summary: Patient had acute pancreatitis he was given pain medicine slowly advance diet as tolerated it well with no nausea vomiting or abdominal pain patient was discharged home. (2) Tobacco abuse Is this a current diagnosis for this admission?: Yes Summary: Encourage cessation of tobacco and drug use (3) Bipolar II disorder, severe, depressed, with anxious distress, in partial remission Is this a current diagnosis for this admission?: Yes Summary: Encourage patient to continue outpatient medications per medical provider (4) Chronic pain disorder Is this a current diagnosis for this admission?: Yes Summary: Defer chronic pain disorder to outpatient medical provider - Additional Information Resuscitation Status: Full Code Discharge Diet: As Tolerated, Regular Discharge Activity: Activity As Tolerated Home Medications: Gabapentin [Neurontin 100 mg Capsule] 300 mg PO Q8 08/14/17 Lorazepam [Ativan 0.5 mg Tablet] 1 mg PO Q8HP PRN 08/14/17 Methylphenidate HCl [Ritalin] 10 mg PO BID 08/14/17 Lamotrigine 50 mg PO DAILY 08/15/17 Acetaminophen [Tylenol 325 mg Tablet] 650 mg PO Q4HP PRN tablet 08/19/17 Hydrocodone/Acetaminophen [[place] 5-325 mg Tablet] 1 tab PO Q4HP PRN #14 tablet 08/19/17 Nystatin [Mycostatin Topical Powder 15 gm] 1 applic TP BID bottle 08/19/17 History of Present Illness History of Present Illness: VANNESSA PATEL is a 26 year old male admitted for acute pancreatitis elevated lipase abdominal pain nausea vomiting. Patient improved after being n.p.o. with IV fluids and hydration as needed pain medication and nausea medicine. Once patient's IV medications were discontinued patient states he was ready to go home so we advanced his diet and he was able to go home Physical Exam Vital Signs: Temp Pulse Resp BP Pulse Ox 98.6 F 91 14 155/100 H 98 08/19/17 00:00 08/19/17 00:00 08/19/17 00:00 08/19/17 00:00 08/19/17 00:00 Intake & Output 08/18/17 08/19/17 08/20/17 06:59 06:59 06:59 Intake Total 4166 3282 Output Total 2488 0511 Balance -1034 -5425 Weight 93 kg 91.7 kg General appearance: PRESENT: no acute distress, well-developed, well-nourished Head exam: PRESENT: atraumatic, normocephalic Eye exam: PRESENT: conjunctiva pink, EOMI, PERRLA. ABSENT: scleral icterus Ear exam: PRESENT: normal external ear exam Mouth exam: PRESENT: moist, tongue midline Neck exam: ABSENT: carotid bruit, JVD, lymphadenopathy, thyromegaly Respiratory exam: PRESENT: clear to auscultation nahid. ABSENT: rales, rhonchi, wheezes Cardiovascular exam: PRESENT: RRR. ABSENT: diastolic murmur, rubs, systolic murmur Pulses: PRESENT: normal dorsalis pedis pul Vascular exam: PRESENT: normal capillary refill GI/Abdominal exam: PRESENT: normal bowel sounds, soft. ABSENT: distended, guarding, mass, organolmegaly, rebound, tenderness Rectal exam: PRESENT: deferred Extremities exam: PRESENT: full ROM. ABSENT: calf tenderness, clubbing, pedal edema Neurological exam: PRESENT: alert, awake, oriented to person, oriented to place , oriented to time, oriented to situation, CN II-XII grossly intact. ABSENT: motor sensory deficit Psychiatric exam: PRESENT: appropriate affect, normal mood. ABSENT: homicidal ideation, suicidal ideation Skin exam: PRESENT: dry, intact, warm. ABSENT: cyanosis, rash Results Laboratory Results: 08/17/17 03:44 08/17/17 03:44 Impressions: Abdomen Ultrasound 08/14/17 13:22 IMPRESSION: Nonvisualization of the pancreas Profound fatty liver Sludge and tiny stones in the gallbladder without gallbladder wall thickening or pericholecystic fluid. Abdomen/Pelvis CT 08/14/17 15:29 IMPRESSION: Moderate inflammatory changes consistent with pancreatitis.
== END 2017-08-19 12:20 | disposition home or self-care (01) | DRG 440 ==
LOC: ER 10:40 → EH 19:59 → UNDOADMOB 20:05 → 5 22:15 → OBSVTOIN 08-15 16:19
PROVIDERS: ADMIT Internal Medicine; ATTEND Internal Medicine
DX: K85.90 Acute pancreatitis without necrosis or infection, unspecified (principal); F31.9 Bipolar disorder, unspecified; F17.200 Nicotine dependence, unspecified, uncomplicated; E87.6 Hypokalemia; F10.10 Alcohol abuse, uncomplicated; D64.9 Anemia, unspecified; G89.29 Other chronic pain; Z83.3 Family history of diabetes mellitus; Z82.49 Family history of ischemic heart disease and other diseases of the circulatory system; Z79.899 Other long term (current) drug therapy
CPT/HCPCS: 36415; 74177; 76705; 80048; 80053; 80061; 80307; 81001; 82607; 82728; 82746; 83036; 83540; 83550; 83690; 83735; 84466; 85025; 85045; 96361; 96365; 96375; 96376; 99285; G0378; J1170; J1644; J1885; J1940; J2270; J2405; J2765; J3411; J3490; J7030; J7050; S0119

== ENCOUNTER → 2017-10-07 | Outpatient (CLI) | payer OTHER ==
--- NOTE | 2017-10-07 13:14 | RADIOLOGY REPORT (SQ) ---
EXAM DESCRIPTION: CT ABD/PELVIS COMBO COMPLETED DATE/TIME: 10/07/2017 11:13 am REASON FOR STUDY: PANCREATITIS (K86.1) K86.1 OTHER CHRONIC PANCREATITIS COMPARISON: 08/14/2017 TECHNIQUE: CT scan of the abdomen and pelvis performed with and without intravenous contrast, and wi thout oral contrast. Contrasted imaging performed helical scanning technique and dynamic intravenous contrast injection. Images reviewed with lung, soft tissue, and bone windows. Reconstructed coronal a nd sagittal MPR images reviewed. Delayed images for evaluation of the urinary system also acquired. A ll images stored on PACS. All CT scanners at this facility use dose modulation, iterative reconstruction, and/or weight based d osing when appropriate to reduce radiation dose to as low as reasonably achievable (ALARA). [facility]: Dose Right [facility]: CareDose [facility]: Dose Right [facility]: Teradose 4D [facility]: SigmaQuest CONTRAST TYPE AND DOSE: contrast/concentration: Isovue 370.00 mg/ml; Total Contrast Delivered: 54.0 ml; Total Saline Delivered: 80.0 ml RENAL FUNCTION: None required. The patient is less than 50 years old. RADIATION DOSE: CT Rad equipment meets quality standard of care and radiation dose reduction techniq ues were employed. CTDIvol: 11.5 - 14.2 mGy. DLP: 2473 mGy-cm. . LIMITATIONS: None. FINDINGS: NON-CONTRASTED IMAGING: No significant renal or bladder calcifications. No other significa nt organ calcifications. POST-CONTRASTED IMAGING: LOWER CHEST: No significant findings. No nodules or infiltrates. LIVER: The liver is homogeneous but hypodense. SPLEEN: Normal size. No focal lesions. PANCREAS: There is mild residual stranding in the peripancreatic fat. There is an 18 mm cyst in the head of the pancreas that was not present on the earlier study. This is best seen on image 59 series 6. A 2nd 10 mm cyst is seen image 66 series 6. A 3rd seen on image 56 that measures about 13 mm. GALLBLADDER: No identified stones by CT criteria. No inflammatory changes to suggest cholecystitis. ADRENAL GLANDS: No significant masses or asymmetry. RIGHT KIDNEY AND URETER: No solid masses. No significant calcifications. No hydronephrosis or hyd roureter. LEFT KIDNEY AND URETER: No solid masses. No significant calcifications. No hydronephrosis or hydr oureter. AORTA AND VESSELS: No aneurysm. No dissection. Renal arteries, SMA, celiac without stenosis. A MIP s equence was done centered on the celiac. RETROPERITONEUM: No retroperitoneal adenopathy, hemorrhage or masses. BOWEL AND PERITONEAL CAVITY: No masses or inflammatory changes. No free fluid or peritoneal masses. APPENDIX: Normal. PELVIS: No mass. No free fluid. Normal bladder. ABDOMINAL WALL: No masses. No hernias. BONES: No significant or acute findings. OTHER: No other significant finding. IMPRESSION: 1. Fatty liver. 2. Residual stranding around the pancreas apparently secondary to the prior episode of pancreatitis. 3 small pseudocysts are present in the head of the pancreas. These were not present on August 14t h. TECHNICAL DOCUMENTATION: JOB ID: [id number] Quality ID # [id number]: Final reports with documentation of one or more dose reduction techniques (e.g., Au tomated exposure control, adjustment of the mA and/or kV according to patient size, use of iterative reconstruction technique) 2010 [employer]- All Rights Reserved
== END ==
LOC: RAD 10:19
DX: K86.1 Other chronic pancreatitis (principal)
CPT/HCPCS: 74178; 82565

== ENCOUNTER → 2017-10-26 | Outpatient (CLI) | payer OTHER ==
--- NOTE | 2017-10-26 09:46 | RADIOLOGY REPORT (SQ) ---
EXAM DESCRIPTION: U/S ABDOMEN LIMITED W/O DOP COMPLETED DATE/TIME: 10/26/2017 9:18 am REASON FOR STUDY: PANCREATITIS K86.1 OTHER CHRONIC PANCREATITIS COMPARISON: Ultrasound dated 08/14/2017. CT dated 10/07/2017. TECHNIQUE: Dynamic and static grayscale images acquired of the abdomen and recorded on PACS. Additio nal selected color Doppler and spectral images recorded. LIMITATIONS: None. FINDINGS: PANCREAS: Ill-defined low-attenuation area in the head of the pancreas measuring 1.9 cm. N o peripancreatic edema or fluid collections. LIVER: Echotexture is coarse with increased echogenicity consistent with fatty infiltration. LIVER VASCULATURE: Normal directional flow of the main portal vein and hepatic veins. GALLBLADDER: No stones. Normal wall thickness. No pericholecystic fluid. ULTRASOUND-DETECTED FLAHERTY'S SIGN: Negative. INTRAHEPATIC DUCTS AND COMMON DUCT: CBD and intrahepatic ducts normal caliber. No filling defects. INFERIOR VENA CAVA: Normal flow. AORTA: No aneurysm. RIGHT KIDNEY: Normal size. Normal echogenicity. No solid or suspicious masses. No hydronephros is. No calcifications. PERITONEAL AND RIGHT PLEURAL SPACE: No ascites or effusions. OTHER: No other significant finding. IMPRESSION: 1. ILL-DEFINED LOW-ATTENUATION AREA IN THE HEAD OF THE PANCREAS. THIS CORRESPONDS WITH A CYSTIC AREA ON RECENT CT, PRESUMABLY A DEVELOPING PANCREATIC PSEUDOCYST. NO SIGNIFICANT CHANGE COMPARED TO THE RECENT CT. 2. FATTY INFILTRATION OF THE LIVER. OTHERWISE NORMAL RIGHT UPPER QUADRANT ULTRASOUND. TECHNICAL DOCUMENTATION: JOB ID: [id number] [employer]- All Rights Reserved
== END ==
LOC: RAD 08:29
DX: K86.1 Other chronic pancreatitis (principal)
CPT/HCPCS: 76705

== ENCOUNTER 2017-12-29 11:48 | Emergency (ER) | payer OTHER ==
--- NOTE | 2017-12-29 12:33 | ER Document Report ---
ED General - General Chief Complaint: Nausea/Vomiting/Diarrhea Stated Complaint: DIARRHEA,NAUSEA,VOMITING Time Seen by Provider: 12/29/17 12:33 Mode of Arrival: Ambulatory Information source: Patient Notes: 27-year-old male presents with history of pink otitis with complaints of left upper quadrant abdominal pain. Patient notes that he has had this pain on and off since his last diagnosis pancreatitis. He denies any fevers or chills. He admits to nausea. He states that his last pain cryptitis was due to alcohol use and he has not drank since. Patient does note that he gets a bad taste in his mouth and has gastric reflux symptoms TRAVEL OUTSIDE OF THE [place] IN LAST 30 DAYS: No - HPI Onset: Other Onset/Duration: Intermittent Quality of pain: Burning Severity: Mild Pain Level: 1 Associated symptoms: Nausea Exacerbated by: Denies Relieved by: Denies Similar symptoms previously: Yes Recently seen / treated by doctor: Yes - Related Data Allergies/Adverse Reactions: No Known Allergies Allergy (Verified 12/29/17 12:20) Past Medical History - Social History Smoking Status: Current Every Day Smoker Cigarette use (# per day): Yes Chew tobacco use (# tins/day): No Smoking Education Provided: No Frequency of alcohol use: None Drug Abuse: None Family History: DM, Hypertension Patient has suicidal ideation: No Patient has homicidal ideation: No Renal/ Medical History: Reports: Hx Kidney Stones. Denies: Hx Peritoneal Dialysis Psychiatric Medical History: Reports: Hx Anxiety, Hx Bipolar Disorder, Hx Depression Past Surgical History: Reports: Hx Oral Surgery - wisdom teeth, Hx Orthopedic Surgery - right hand cyst removal - Immunizations Hx Diphtheria, Pertussis, Tetanus Vaccination: Yes Review of Systems - Review of Systems Notes: REVIEW OF SYSTEMS: CONSTITUTIONAL : Denies fever, chills, or sweats. Denies recent illness. EENT: Denies eye, ear, throat, or mouth pain or symptoms. Denies nasal or sinus congestion or discharge. Denies throat, tongue, or mouth swelling or difficulty swallowing. CARDIOVASCULAR: Denies chest pain. Denies palpitations or racing or irregular heart beat. Denies ankle edema. RESPIRATORY: Denies cough, cold, or chest congestion. Denies shortness of breath, difficulty breathing, or wheezing. GASTROINTESTINAL: admits to abd pain GENITOURINARY: Denies difficulty urinating, painful urination, burning, frequency, blood in urine, or discharge. MUSCULOSKELETAL: Denies back or neck pain or stiffness. Denies joint pain or swelling. SKIN: Denies rash, lesions or sores. HEMATOLOGIC : Denies easy bruising or bleeding. LYMPHATIC: Denies swollen, enlarged glands. NEUROLOGICAL: Denies confusion or altered mental status. Denies passing out or loss of consciousness. Denies dizziness or lightheadedness. Denies headache. Denies weakness or paralysis or loss of use of either side. Denies problems with gait or speech. Denies sensory loss, numbness, or tingling. Denies seizures. PSYCHIATRIC: Denies anxiety or stress. Denies depression, suicidal ideation, or homicidal ideation. ALL OTHER SYSTEMS REVIEWED AND NEGATIVE. Dictation was performed using [employer] voice recognition software PHYSICAL EXAMINATION: GENERAL: Well-appearing, well-nourished and in no acute distress. HEAD: Atraumatic, normocephalic. EYES: Pupils equal round and reactive to light, extraocular movements intact, sclera anicteric, conjunctiva are normal. ENT: Nares patent, oropharynx clear without exudates. Moist mucous membranes. NECK: Normal range of motion, supple without lymphadenopathy LUNGS: Breath sounds clear to auscultation bilaterally and equal. No wheezes rales or rhonchi. HEART: Regular rate and rhythm without murmurs ABDOMEN: Soft, mild left upper quadrant pain, no rebound or guarding Musculoskeletal: Normal range of motion, no pitting or edema. No cyanosis. NEUROLOGICAL: Cranial nerves grossly intact. Normal speech, normal gait. Normal sensory, motor exams PSYCH: Normal mood, normal affect. SKIN: Warm, Dry, normal turgor, no rashes or lesions noted. Physical Exam - Vital signs Vitals: Temp Pulse Resp BP Pulse Ox 98.5 F 79 12 130/75 H 99 12/29/17 12:01 12/29/17 12:01 12/29/17 12:01 12/29/17 12:12/29/17 12:01 Course - Re-evaluation Re-evalutation: 12/29/17 19:19 Patient's evaluation notes no significant abnormality, he is well-appearing no distress, his nausea was well controlled, he will be discharged home with nausea control as well as gastric reflux medication. Lab work was normal After performing a Medical Screening Examination, I estimate there is LOW risk for ACUTE APPENDICITIS, BOWEL OBSTRUCTION, ACUTE CHOLECYSTITIS, PERFORATED DIVERTICULITIS, INCARCERATED HERNIA, PANCREATITIS, TESTICULAR TORSION or PERFORATED ULCER, thus I consider the discharge disposition reasonable. Also, there is no evidence or peritonitis, sepsis, or toxicity. I have reevaluated this patient multiple times and no significant life threatening changes are noted. The patient and I have discussed the diagnosis and risks, and we agree with discharging home with close follow-up with the understanding that symptoms and presentations can change. We also discussed returning to the Emergency Department immediately if new or worsening symptoms occur. We have discussed the symptoms which are most concerning (e.g., bloody stool, fever, changing or worsening pain, intractable vomiting - standard verbal up date) that necessitate immediate return. - Vital Signs Vital signs: Temp Pulse Resp BP Pulse Ox 98.4 F 64 16 102/60 100 12/29/17 15:09 12/29/17 15:09 12/29/17 15:09 12/29/17 15:09 12/29/17 15:09 - Laboratory Result Diagrams: 12/29/17 13:58 12/29/17 12:54 Laboratory results interpreted by me: 12/29/17 12/29/17 12:54 13:58 Hgb 13.2 L BUN 5 L Discharge - Discharge Clinical Impression: Abdominal pain Qualifiers: Abdominal location: left upper quadrant Qualified Code(s): R10.12 - Left upper quadrant pain GERD (gastroesophageal reflux disease) Qualifiers: Esophagitis presence: with esophagitis Qualified Code(s): K21.0 - Gastro- esophageal reflux disease with esophagitis Condition: Stable Disposition: HOME, SELF-CARE Instructions: Abdominal Pain ([facility]) Additional Instructions: Follow up with your physician tomorrow for further care or return to the ED IMMEDIATELY if symptoms worsen or new concerns occur. If you cannot afford to follow up with your primary care physician a list of low cost clinics have been provided at the end of your discharge papers as well. Prescriptions: Famotidine [Pepcid 40 mg Tablet] 40 mg PO DAILY #30 tablet Metoclopramide HCl [Reglan 10 mg Tablet] 1 - 2 tab PO ASDIR PRN #25 tablet PRN Reason: Referrals: [facility] [Primary Care Provider] - Follow up as needed
[2017-12-29] MEDS ORDERED: ONDANSETRON 4 MG TAB.RAPDIS PO ONE (12:34)
[2017-12-29 13:26] LABS: ALANINE AMINOTRANSFERASE 69 U/L (21-72); ALBUMIN 4.7 g/dL (3.5-5.0); ALKALINE PHOSPHATASE 88 U/L (38-126); ANION GAP 9 (5-19); ASPARTATE AMINO TRANSFERASE 44 U/L (17-59); BILIRUBIN,DIRECT 0.3 mg/dL (0.0-0.4); BILIRUBIN,TOTAL 0.4 mg/dL (0.2-1.3); BLOOD UREA NITROGEN 5 mg/dL (7-20); CALCIUM 9.4 mg/dL (8.4-10.2); CARBON DIOXIDE 28 mmol/L (22-30); CHLORIDE 104 mmol/L (98-107); GLUCOSE 79 mg/dL (75-110); LIPASE 35.3 U/L (23-300); POTASSIUM 4.3 mmol/L (3.6-5.0); TOTAL PROTEIN 7.5 g/dL (6.3-8.2)
[2017-12-29 14:08] LABS: ABSOLUTE EOSINOPHILS # (AUTO) 0.3 10^3/uL (0.0-0.6); ABSOLUTE LYMPHOCYTES (AUTO) 1.5 10^3/uL (0.5-4.7); ABSOLUTE MONOCYTES (AUTO) 0.6 10^3/uL (0.1-1.4); BASOPHILS % (AUTO) 0.7 % (0-2); EOSINOPHILS % (AUTO) 4.2 % (0-6); HEMATOCRIT 38.3 % (37.9-51.0); HEMOGLOBIN 13.2 g/dL (13.5-17.0); LYMPHOCYTES % (AUTO) 23.4 % (13-45); MEAN CORPUSCULAR HEMOGLOBIN 29.1 pg (27.0-33.4); MEAN CORPUSCULAR HGB CONC 34.4 g/dL (32.0-36.0); MEAN CORPUSCULAR VOLUME 85 fl (80-97); PLATELET COUNT 237 10^3/uL (150-450); RED BLOOD COUNT 4.53 10^6/uL (4.35-5.55); RED CELL DISTRIBUTION WIDTH 13.4 % (11.5-14.0); SEGMENTED NEUTROPHILS % (AUTO) 62.7 % (42-78); TOTAL CELLS COUNTED % (AUTO) 100 %; WHITE BLOOD COUNT 6.4 10^3/uL (4.0-10.5)
[2017-12-29 15:10] VITALS: BP 102/60
== END 2017-12-29 15:09 | disposition home or self-care (01) ==
LOC: ER 11:48
DX: K21.0 Gastro-esophageal reflux disease with esophagitis (principal); R10.12 Left upper quadrant pain; F17.210 Nicotine dependence, cigarettes, uncomplicated; Z87.19 Personal history of other diseases of the digestive system
CPT/HCPCS: 99284; 36415; 83690; 85025; 80053; S0119

== ENCOUNTER 2018-07-21 21:10 | Emergency (ER) | payer OTHER ==
[2018-07-21] MEDS ORDERED: NORMAL SALINE 1000 ML 1,000 ML IV ONE (23:15)
[2018-07-21] MEDS ORDERED: KETOROLAC TROMETHAMINE INJ/PF 30 MG/1 ML SDV IV ONE (23:15)
--- NOTE | 2018-07-21 23:15 | ER Document Report ---
ED General - General Chief Complaint: pain Stated Complaint: SIDE PAIN Time Seen by Provider: 07/21/18 22:48 Mode of Arrival: Ambulatory Information source: Patient, [facility] Records Notes: 27-year-old male with bipolar disorder, depression, anxiety, drug abuse, chronic low back pain presents with complaint of right-sided body pain from his neck down to his calf. Patient states this has been ongoing for several months. Patient has had intermittent falls. He also admits to several weeks of diarrhea. He states that he is currently taking gabapentin, Ritalin and Valium. He admits to making morphine out of poppy seeds but states he has stopped taking any illicit drugs. Patient denies fever, chills, nausea, vomiting, chest pain, headache, blurred vision, slurred speech. TRAVEL OUTSIDE OF THE [place] IN LAST 30 DAYS: No - HPI Onset: Other Onset/Duration: Gradual, Persistent Quality of pain: Cramping Severity: Mild Associated symptoms: Diarrhea. denies: Chest pain, Fever, Nausea, Vomiting, Shortness of breath Exacerbated by: Movement Relieved by: Denies Similar symptoms previously: Yes Recently seen / treated by doctor: No - Related Data Allergies/Adverse Reactions: No Known Allergies Allergy (Verified 12/29/17 12:20) Past Medical History - General Information source: Patient, [facility] Records - Social History Smoking Status: Current Every Day Smoker Cigarette use (# per day): Yes - 10 Smoking Education Provided: Yes - Smoking cessation counseling was provided for 4 minutes at the bedside Frequency of alcohol use: None Drug Abuse: None Lives with: Family Family History: DM, Hypertension Patient has suicidal ideation: No Patient has homicidal ideation: No Renal/ Medical History: Reports: Hx Kidney Stones. Denies: Hx Peritoneal Dialysis Psychiatric Medical History: Reports: Hx Anxiety, Hx Bipolar Disorder, Hx Depression Past Surgical History: Reports: Hx Oral Surgery - wisdom teeth, Hx Orthopedic Surgery - right hand cyst removal - Immunizations Hx Diphtheria, Pertussis, Tetanus Vaccination: Yes Review of Systems - Review of Systems Notes: REVIEW OF SYSTEMS: CONSTITUTIONAL : Denies fever, chills, or sweats. Denies recent illness. Denies weight loss, recent hospitalizations. EENT: Denies visual changes, eye pain. Denies sore throat, oral lesions, difficulty swallowing. CARDIOVASCULAR: Denies chest pain. Denies palpitations. Denies lower extremity edema. RESPIRATORY: Denies cough. Denies shortness of breath, wheezing. GASTROINTESTINAL: Denies abdominal pain or distention. Denies nausea, vomiting , or diarrhea. Denies blood in vomitus, stools, or per rectum. Denies black, tarry stools. Denies constipation. GENITOURINARY: Denies difficulty urinating, painful urination, frequency, blood in urine, testicular pain or penile discharge. MUSCULOSKELETAL: Denies joint pain or swelling. SKIN: Denies rash, lesions or sores. HEMATOLOGIC : Denies easy bruising or bleeding. LYMPHATIC: Denies swollen glands. NEUROLOGICAL: Denies confusion or altered mental status. Denies loss of consciousness. Denies dizziness or lightheadedness. Denies headache. Denies paralysis. Denies problems slurred speech. Denies sensory loss, numbness, or tingling. Denies seizures. PSYCHIATRIC: Denies suicidal ideation, Physical Exam - Vital signs Vitals: Temp Pulse Resp BP Pulse Ox 97.7 F 108 H 18 110/74 98 07/21/18 21:25 07/21/18 21:25 07/21/18 21:25 07/21/18 21:25 07/21/18 21:25 - Notes Notes: PHYSICAL EXAMINATION: GENERAL: Well-appearing, well-nourished and in no acute distress. HEAD: Atraumatic, normocephalic. EYES: Pupils equal round and reactive to light, extraocular movements intact, sclera anicteric, conjunctiva are normal. ENT: Nares patent, oropharynx clear without exudates. Moist mucous membranes. NECK: Normal range of motion, supple without lymphadenopathy LUNGS: Breath sounds clear to auscultation bilaterally and equal. No wheezes rales or rhonchi. HEART: Regular rate and rhythm without murmurs ABDOMEN: Soft, nontender, nondistended abdomen. No guarding, no rebound. No masses appreciated. Musculoskeletal: Normal range of motion, no pitting or edema. No cyanosis. NEUROLOGICAL: Cranial nerves grossly intact. Normal speech, normal gait. Normal sensory, motor exams. Tandem gait normal. NIH-0 PSYCH: Normal mood, normal affect. SKIN: Warm, Dry, normal turgor, no rashes or lesions noted. Course - Re-evaluation Re-evalutation: 27-year-old male with bipolar disorder, depression, anxiety, drug abuse, chronic low back pain presents with complaint of right-sided body pain from his neck down to his calf. Patient states this has been ongoing for several months. Patient has had intermittent falls. He also admits to several weeks of diarrhea. He states that he is currently taking gabapentin, Ritalin and Valium. He admits to making morphine out of poppy seeds but states he has stopped taking any illicit drugs. Patient denies fever, chills, nausea, vomiting, chest pain, headache, blurred vision, slurred speech. Vital signs stable upon arrival. Patient does not appear toxic or dehydrated. He is in no acute distress. Patient has a normal neurologic exam, normal gait. Pain is not reproducible. BMP was obtained secondary to patient's report of several weeks of diarrhea and shows no electrolyte abnormalities, normal renal function. Patient did receive IV fluids, Toradol and on reevaluation he is sleeping peacefully. Patient will be discharged home with Naprosyn. Patient provided the opportunity to ask questions, and express concerns. Discharge instructions discussed. Patient is agreeable with discharge home. Return indications explained and discussed with the patient who displays understanding. Patient encouraged to return to the emergency department immediately with any concerns. Results were discussed with the patient at this point, after careful consideration I feel that that patient can be discharged from the emergency department, the patient was educated treatments and reasons to return to the emergency department based on their presumed diagnosis as noted above, they were advised to followup with a primary care physician in 2-3 days. Patient was agreeable to plan of care. Dictation on this chart was performed using voice recognition software and may result in unintended grammatical, spelling, syntax or errors. 07/22/18 02:11 Patient did receive IV fluids, Toradol and on and reports improvement of pain. 07/22/18 02:16 07/22/18 02:16 - Vital Signs Vital signs: Temp Pulse Resp BP Pulse Ox 97.7 F 108 H 18 110/74 98 07/21/18 21:25 07/21/18 21:25 07/21/18 21:25 07/21/18 21:25 07/21/18 21:25 - Laboratory Result Diagrams: 07/22/18 00:45 Laboratory results interpreted by me: 07/22/18 07/22/18 00:31 00:45 Potassium 3.5 L Chloride 108 H Urine Protein 100 H Discharge - Discharge Clinical Impression: Chronic pain disorder, Hypokalemia, Bipolar II disorder, severe, depressed, with anxious distress, in partial remission Condition: Good Disposition: HOME, SELF-CARE Instructions: Low Back Pain ([facility]), Muscle Strain ([facility]) Additional Instructions: You have been seen in the Emergency Department (ED) today for back pain. Your workup and exam have not shown any acute abnormalities and you are likely suffering from muscle strain or possible problems with your discs, but there is no treatment that will fix your symptoms at this time. Please take the naproxen that has been prescribed as directed. You should also purchase a local lidocaine cream such as "aspercreme with lidocaine" and use per bottle instructions to the affected area. Apply heat to the area as often as you are able. Continue to keep active and avoid prolonged periods of bed rest. Please follow up with your doctor as soon as possible regarding today's ED visit and your back pain. Return to the ED for worsening back pain, fever, weakness or numbness of either leg, or if you develop either (1) an inability to urinate or have bowel movements, or (2) loss of your ability to control your bathroom functions (if you start having "accidents"), or if you develop other new symptoms that concern you.concern you. Prescriptions: Naproxen 500 mg PO BID #20 tablet Referrals: [facility] [NO LOCAL MD] - Follow up as needed
[2018-07-22 01:12] LABS: APPEARANCE,URINE CLEAR; BILIRUBIN,URINE NEGATIVE (NEGATIVE); GLUCOSE, URINE NEGATIVE (NEGATIVE); KETONES,URINE NEGATIVE (NEGATIVE); LEUKOCYTE ESTERASE,URINE NEGATIVE (NEGATIVE); NITRITE,URINE NEGATIVE (NEGATIVE); PROTEIN,URINE 100 mg/dL (NEGATIVE); URINE SPECIFIC GRAVITY 1.028; UROBILINOGEN,URINE NEGATIVE mg/dL (<2.0)
[2018-07-22 01:14] LABS: COLOR,URINE YELLOW
[2018-07-22 01:16] LABS: ANION GAP 12 (5-19); BLOOD UREA NITROGEN 8 mg/dL (7-20); CARBON DIOXIDE 24 mmol/L (22-30); CHLORIDE 108 mmol/L (98-107); GLUCOSE 96 mg/dL (75-110); POTASSIUM 3.5 mmol/L (3.6-5.0); SODIUM 143.8 mmol/L (137-145)
[2018-07-22 01:26] LABS: URINE AMPHETAMINES SCREEN NEGATIVE; URINE BARBITURATES SCREEN NEGATIVE; URINE BENZODIAZEPINES SCREEN UNCONFIRMED POSITIVE; URINE COCAINE SCREEN NEGATIVE; URINE MARIJUANA (THC) SCREEN NEGATIVE; URINE METHADONE SCREEN NEGATIVE; URINE PHENCYCLIDINE SCREEN NEGATIVE
[2018-07-22 03:08] VITALS: BP 107/57
== END 2018-07-22 03:08 | disposition home or self-care (01) ==
LOC: ER 21:10
DX: G89.4 Chronic pain syndrome (principal); E87.6 Hypokalemia; F31.81 Bipolar II disorder; F17.210 Nicotine dependence, cigarettes, uncomplicated; R19.7 Diarrhea, unspecified
CPT/HCPCS: 99406; 99283; 96374; 36415; 80048; 81001; 80307; J1885

== ENCOUNTER 2018-07-23 09:26 | Emergency (ER) | payer OTHER ==
[2018-07-23 10:00] VITALS: BP 126/81
[2018-07-23] MEDS ORDERED: LIDOCAINE 5% (700 MG) TRANSDERMAL ADH..PATCH TP ONE (10:03)
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
== END 2018-07-23 10:09 | disposition home or self-care (01) ==
LOC: ER 09:26
DX: M54.12 Radiculopathy, cervical region (principal); M54.41 Lumbago with sciatica, right side; M54.2 Cervicalgia; M54.9 Dorsalgia, unspecified; G89.29 Other chronic pain
CPT/HCPCS: 99283

== ENCOUNTER → 2018-07-30 | Outpatient (CLI) | payer OTHER ==
--- NOTE | 2018-07-30 10:08 | RADIOLOGY REPORT (SQ) ---
EXAM DESCRIPTION: MRI CERVICAL SPINE WITHOUT COMPLETED DATE/TIME: 07/30/2018 8:44 am REASON FOR STUDY: NECK PAIN, CHRONIC(M54.2) 723.1 M54.2 CERVICALGIA COMPARISON: None. TECHNIQUE: Sagittal and Axial imaging includes T1, T2, STIR and gradient echo sequences. LIMITATIONS: None. FINDINGS: ALIGNMENT: Normal. VERTEBRAE: Intact. BONE MARROW: Normal. No marrow replacement or reactive changes. HARDWARE: None in the spine. CORD AND BASE OF BRAIN: Normal in size and signal intensity. SOFT TISSUES: No soft tissue masses. C1-C2: No significant spinal stenosis. C2-C3: No significant spinal stenosis or exit foraminal stenosis. C3-C4: No significant spinal stenosis or exit foraminal stenosis. C4-C5: Uncovertebral spurring with mild foraminal narrowing. C5-C6: Disc osteophyte complex. Mild effacement anterior CSF space without cord compression or signi ficant central stenosis. Mild-moderate bilateral foraminal stenosis. C6-C7: Mild broad central protrusion without cord contact. No high-grade central stenosis. Mild -mo derate right foraminal narrowing is suggested. C7-T1: Small central protrusion. No high-grade central stenosis or mass effect on the cord. UPPER THORACIC: Incompletely imaged. No significant spinal stenosis or exit foraminal stenosis. OTHER: No other significant finding. IMPRESSION: 1. Cervical spondylosis. Disc disease at several levels as discussed. No demetris cord co mpression or high-grade stenosis. No spinal malalignment, fracture or worrisome bone lesion. TECHNICAL DOCUMENTATION: JOB ID: [id number] [employer]- All Rights Reserved Reading location - IP/workstation name: [email or web address]
== END ==
LOC: RAD 07:55
PROVIDERS: ATTEND Internal Medicine
DX: M54.2 Cervicalgia (principal)
CPT/HCPCS: 72141